=== PATIENT | female | born 1935 | race Caucasian/White ===

== ENCOUNTER 2016-06-10 09:38 | Outpatient (CLI) | payer MEDICARE, OTHER | END 2016-06-10 09:39 | disposition critical access hospital (66) | DX: R41.0 Disorientation, unspecified (principal); R15.1 Fecal smearing; R19.5 Other fecal abnormalities | CPT/HCPCS: A0425; A0427 ==

== ENCOUNTER 2016-06-12 17:46 | Outpatient (CLI) | payer MEDICARE, OTHER | END 2016-06-12 17:47 | LOC: EMS 17:46 | PROVIDERS: ATTEND Surgery | DX: C67.9 Malignant neoplasm of bladder, unspecified (principal); Z74.01 Bed confinement status | CPT/HCPCS: A0425; A0428 ==